=== PATIENT | male | born 1950 | race African-American/Black ===

== ENCOUNTER 2016-11-05 09:54 | Day surgery (SDC) | payer MEDICARE, OTHER ==
[~2016-11-05 09:54] MED LIST: GABA300C5 PO; HYDR25TA35 PO; NADO20TA PO; TRAM50TA PO; TRIBTAB9 PO; VITA2000 PO; XIFA550T4 PO
[2016-11-05 10:37] VITALS: BP 118/63; PULSE 57; RESP 14; TEMP 97.8; O2SAT 96
[2016-11-05 11:50] VITALS: BP 112/57; PULSE 58; RESP 20; TEMP 98.3; O2SAT 98
--- NOTE | 2016-11-05 11:50 | RADRPT ---
EXAM DATE/TIME: 11/05/2016 10:32 [facility] COMPARISON: US GUIDED ABD PARACENTESIS, September 29, 2016, 8:45. INDICATIONS : Ascites. MEDICAL HISTORY : Hypercholesterolemia. Hypertension. Diabetes mellitus type 2. Lupus. Cirrhosis. SURGICAL HISTORY : Cholecystectomy. Cervical spine fusion. Upper endoscopy. Colonoscopy. ENCOUNTER: Sequela ACUITY: 1 week PAIN SCORE: 4/10 LOCATION: Left lower quadrant FLUID: Total volume of 7100 cc of clear, yellow fluid was removed. Fluid was discarded. Paracentesis was therapeutic only. Post procedure scanning reveals no hematoma or other complication. TECHNIQUE: 1. Ultrasound guidance for abdominal paracentesis. 2. Paracentesis. The risks, benefits, and alternatives to ultrasound guided paracentesis were explained to the patient in detail including the risk of bleeding and infection. Written and verbal informed consent was obt ained. With the patient on the ultrasound table, ultrasound imaging was used to select the most appropriate approach for paracentesis. Overlying skin was prepped and draped in the usual sterile fashion and wi th a local anesthetic, a dermatotomy was made with an 11 blade scalpel. A 6 Japanese Oit-X-nusokpal ca theter was introduced into the peritoneal cavity and fluid was collected. The patient tolerated the procedure well and left the ultrasound suite in stable condition. CONCLUSION: Uncomplicated ultrasound guided paracentesis. Patient received albumin per protocol. Ravin Hope MD FACR on November 05, 2016 at 11:48 Board Certified Radiologist. This report was verified electronically.
[2016-11-05] MEDS ORDERED: ALBUMIN HUMAN 25% 50 GM IV ONE (12:00)
[2016-11-05 12:05] VITALS: BP 113/52; PULSE 57; RESP 20; O2SAT 99
== END 2016-11-05 12:55 | disposition home or self-care (01) ==
LOC: HRAD 09:54 → HRIP 09:55 → HRAD 12:55
PROVIDERS: ATTEND Internal Medicine Gastroenterology
DX: R18.8 Other ascites (principal); E78.00 Pure hypercholesterolemia, unspecified; I10 Essential (primary) hypertension; E11.9 Type 2 diabetes mellitus without complications; M32.9 Systemic lupus erythematosus, unspecified; K74.60 Unspecified cirrhosis of liver
CPT/HCPCS: 49083; C1729; P9047

== ENCOUNTER 2016-12-11 07:49 | Day surgery (SDC) | payer MEDICARE, OTHER ==
[2016-12-11 08:17] VITALS: BP 135/73; PULSE 60; RESP 16; TEMP 97.9; O2SAT 97
[2016-12-11 09:27] VITALS: BP 115/61; PULSE 59; RESP 18; TEMP 97; O2SAT 99
[2016-12-11 09:45] VITALS: BP 115/62; PULSE 61; RESP 18; O2SAT 96
--- NOTE | 2016-12-11 09:55 | RADRPT ---
EXAM DATE/TIME: 12/11/2016 08:10 [facility] COMPARISON: US GUIDED ABD PARACENTESIS, November 05, 2016, 10:32. INDICATIONS : Ascites MEDICAL HISTORY : Cirrhosis. Hypertension. Hypercholesterolemia. Diabetes mellitus type 2. Lupus. SURGICAL HISTORY : Cholecystectomy Paracentesis. Cervical spine fusion. Upper endoscopy. Colonoscopy. ENCOUNTER: Sequela ACUITY: 1 month PAIN SCORE: 0/10 LOCATION: Left lower quadrant FLUID: Total volume of 6800 cc of clear, yellow fluid was removed. Fluid was discarded. Paracentesis was therapeutic only. Post procedure scanning reveals no hematoma or other complication. TECHNIQUE: 1. Ultrasound guidance for abdominal paracentesis. 2. Paracentesis. The patient has tolerated large volume paracenteses without difficulty. The risks, benefits, and alte rnatives to ultrasound guided paracentesis were explained to the patient in detail including the risk of bleeding and infection. Written and verbal informed consent was obtained. With the patient on the ultrasound table, ultrasound imaging was used to select the most appropriate approach for paracentesis. Overlying skin was prepped and draped in the usual sterile fashion and wi th a local anesthetic, a dermatotomy was made with an 11 blade scalpel. A 6 German Cfz-[id number]-rideybpj ca theter was introduced into the peritoneal cavity and fluid was collected. The patient tolerated the procedure well and left the ultrasound suite in stable condition. CONCLUSION: Uncomplicated ultrasound guided paracentesis. Grant Sommers Jr., MD on December 11, 2016 at 9:53 Board Certified Radiologist. This report was verified electronically.
[2016-12-11] MEDS ORDERED: ALBUMIN HUMAN 25% 12.5GM-W/25GM FOR 37.5GM IV ONE (10:00)
[2016-12-11] MEDS ORDERED: ALBUMIN HUMAN 25% 25GM-W/12.5GM FOR 37.5GM IV ONE (10:00)
== END 2016-12-11 10:25 | disposition home or self-care (01) ==
LOC: HRAD 07:49 → HRIP 07:50 → HRAD 10:25
PROVIDERS: ATTEND Family Medicine
DX: R18.8 Other ascites (principal); K74.60 Unspecified cirrhosis of liver; M32.9 Systemic lupus erythematosus, unspecified; I10 Essential (primary) hypertension; E11.9 Type 2 diabetes mellitus without complications; E78.00 Pure hypercholesterolemia, unspecified
CPT/HCPCS: 49083; 96365; C1729; P9047

== ENCOUNTER → 2017-07-14 | Outpatient (CLI) | payer MEDICARE, OTHER ==
--- NOTE | 2017-07-31 10:22 | RSPPFT ---
DATE OF PROCEDURE: 07/14/17 COMMENTS: VOLUMES DYNAMIC: FVC and FEV1 moderately reduced. STATIC: TLC mildly reduced; FRC and RV normal. FLOWS: FEV1% normal; FEF 25-75 mildly reduced. DIFFUSION: Mildly reduced. FLOW VOLUME L;OOP: Combined obstructive and restrictive pattern. IMPRESSION: This appears to be a mild restrictive ventilatory defect with some mild terminal airflow obstruction. Airways resistance is normal. Diffusion is mildly reduced. There is no improvement post-bronchodilator.
== END ==
LOC: HRSP 12:17
PROVIDERS: ATTEND Internal Medicine
DX: J45.909 Unspecified asthma, uncomplicated (principal); R06.02 Shortness of breath
CPT/HCPCS: 94060; 94620; 94726; 94729; 95012